=== PATIENT | female | born 1975 | race Caucasian/White ===

== ENCOUNTER → 2019-02-03 08:00 | Outpatient (POV) | payer SELFPAY | PROVIDERS: Visit Provider Dermatology | DX: Z00.00 Encounter for general adult medical examination without abnormal findings (principal) ==

== ENCOUNTER → 2019-06-12 15:00 | Outpatient (CLI) | payer BC, SELFPAY ==
--- NOTE | 2019-06-12 15:08 | US_ITS ---
PROCEDURE: US THYROID CLINICAL INDICATION: THYROID NODULES COMPARISON: No exams were available for comparison FINDINGS: Right lobe: 4.3 x 1.2 x 1.2 cm. There are 2 hypoechoic nodules in the mid polar region at 3 mm each. A 4 mm cyst is present in the lower pole on the right. Left lobe: 4.1 x 1.1 x 1.5 cm. There is a 3 mm hypoechoic nodule in the upper pole. A 5 mm hypoechoic nodules present in the lower pole. This is well-circumscribed without internal calcifications and appears somewhat spongiform Isthmus: Unremarkable Additional findings: IMPRESSION: Bilateral hypoechoic nodules which are of a low level of suspicion. Please correlate with old studies performed at an outside institution not available for comparison. Dictated by: Daniel Veronica MD 06/13/2019 10:49 Electronically signed by Daniel Veronica MD in [place] 06/13/2019 10:49
== END ==
PROVIDERS: PCP Nurse Practitioner Adult Health; Visit Provider Nurse Practitioner Adult Health
DX: E04.1 Nontoxic single thyroid nodule (principal)
CPT/HCPCS: 76536

== ENCOUNTER → 2020-11-24 15:57 | Outpatient (CLI) | payer BC, SELFPAY | PROVIDERS: PCP Nurse Practitioner Family; Visit Provider Nurse Practitioner Family | DX: Z20.822 Contact with and (suspected) exposure to COVID-19 (principal) | CPT/HCPCS: U0003 ==

== ENCOUNTER → 2021-03-14 12:28 | Outpatient (CLI) | payer BC, SELFPAY ==
--- NOTE | 2021-03-14 12:34 | XR_ITS ---
PROCEDURE: XR KUB CLINICAL INDICATION: LT SIDED ABD PAIN COMPARISON: No exams were available for comparison FINDINGS: Surgical clips are present in the right upper quadrant. No evidence of intestinal obstruction. There is an IUD in place slightly tilted toward the left at its upper aspect. Phleboliths is present in the mid pelvic region slightly toward the left. No acute bony anomalies IMPRESSION: No acute findings. Dictated by: Daniel Veronica MD 03/14/2021 14:19 Daniel Veronica MD in [facility] 03/14/2021 14:19
== END ==
PROVIDERS: PCP Family Medicine; Visit Provider Nurse Practitioner Family
DX: R10.9 Unspecified abdominal pain (principal)
CPT/HCPCS: 74018

== ENCOUNTER → 2021-04-04 10:13 | Outpatient (POV) | payer BC, SELFPAY | PROVIDERS: Visit Provider Dermatology | DX: Z00.00 Encounter for general adult medical examination without abnormal findings (principal) ==

== ENCOUNTER → 2021-06-08 09:42 | Outpatient (CLI) | payer BC, SELFPAY ==
[2021-06-08 10:23] LABS: Basophils % 0.7 % (0.1-2.0); Eosinophils # 0.1 K/mm3 (0.0-0.4); Eosinophils % 2.7 % (0.1-12.0); Hematocrit 46.1 % (37.0-47.0); Hemoglobin 15.4 g/dL (12.2-16.2); Lymphocytes # 1.6 K/mm3 (0.7-4.5); Lymphocytes % 30.6 % (10-50); Mean Corpuscular HGB Conc 33.4 g/dL (31.8-35.4); Mean Corpuscular Hemoglobin 28.7 pg (27.0-31.2); Mean Platelet Volume 8.4 fl (7.4-10.4); Monocytes # 0.3 K/mm3 (0.1-1.0); Neutrophils # 3.1 K/mm3 (1.8-7.8); Neutrophils % 60.2 % (37.0-80.0); Platelet Count 259 K/mm3 (142-424); Red Blood Count 5.36 M/mm3 (4.20-5.40); Red Cell Distribution Width 12.9 % (11.5-17.5); White Blood Count 5.2 K/mm3 (4.8-10.8)
[2021-06-08 11:12] LABS: Alanine Aminotransferase 38 U/L (12-78); Albumin Level 4.1 g/dl (3.5-5.0); Albumin/Globulin Ratio 1.5 (1.1-1.8); Alkaline Phosphatase 65 U/L (38-126); Anion Gap 10.4 mEq/L (5-15); Aspartate Amino Transferase 36 U/L (14-36); Bilirubin,Total 0.4 mg/dl (0.2-1.3); Blood Urea Nitrogen 8 mg/dl (7-17); Calcium 9.5 mg/dl (8.4-10.2); Carbon Dioxide 30 mmol/L (22.0-30.0); Chloride 102 mmol/L (98-107); Chol/HDL Ratio 4.6 (1-3.5); Cholesterol 188 mg/dl (140-200); Estimated Glomerular Filt Rate 91 ml/min (>60); GFR (African American) 111 ML/MIN (>60); Globulin 2.7 g/dL (1.3-3.2); Glucose 92 mg/dl (74-100); HDL Cholesterol 41 mg/dl (40-60); Potassium 4.4 mmoL/L (3.5-5.1); Sodium 138 mmol/L (136-145); Total Protein,Serum 6.8 g/dl (6.3-8.2); Triglycerides 123 mg/dl (30-150); VLDL Cholesterol 25 mg/dL (0-40)
[2021-06-08 11:23] LABS: C-Reactive Protein 1.5 mg/L (0-4); Direct LDL Cholesterol 138.16 mg/dL (100-129)
[2021-06-08 11:41] LABS: Thyroid Stimulating Hormone 1.13 uIU/mL (0.465-4.68)
[2021-06-08 11:52] LABS: Troponin I < 0.01 ng/ml (0.00-0.034)
== END ==
PROVIDERS: Visit Provider Nurse Practitioner Family
DX: R07.89 Other chest pain (principal)
CPT/HCPCS: 36415; 80053; 80061; 83735; 84443; 84484; 85025; 86140

== ENCOUNTER → 2021-06-25 12:21 | Outpatient (CLI) | payer BC, SELFPAY | PROVIDERS: Visit Provider Nurse Practitioner Family | DX: Z20.822 Contact with and (suspected) exposure to COVID-19 (principal) | CPT/HCPCS: C9803; U0003; U0005 ==

== ENCOUNTER 2021-06-27 06:27 | Day surgery (SDC) | payer BC, SELFPAY ==
[2021-06-26 09:01] VITALS: BMI 36.9
[2021-06-27 06:47] VITALS: BP 112/70; PULSE 76; RESP 18; TEMP 37.1; O2SAT 94
[2021-06-27 07:07] LABS: Urine Pregnancy, HCG Qual. Negative (Negative)
[2021-06-27 07:30] VITALS: O2SAT 97
--- NOTE | 2021-06-27 07:41 | HMH.SCOPE ---
- Procedure: Date: 06/27/21 Patient Date of :: 1975 Procedure Performed:: Esophagogastroduodenoscopy with biopsy Indications:: Reflux Dysphagia Performing Provider:: Van Whyte MD Referring Provider:: . Sedation:: Monitored anesthesia care Procedure:: After informed consent was obtained the patient was taken to the endoscopy suite. Sedation ensued after the patient was transferred to the left lateral decubitus position. Pulse, blood pressure, and oxygen saturation were monitored throughout the procedure. The endoscope was advanced beyond the duodenal bulb. Retroflexion within the gastric lumen was accomplished. The gastroscope was carefully removed and the patient was transferred to recovery in stable condition. Please see findings and specimens below for detail. Findings:: Gastroesophageal junction at 38 cm Small sliding hiatal hernia Mild to moderate patchy gastroduodenitis Specimens:: Antral biopsy Recommendations:: Follow-up pathology Continue H2 kayy Consider proton pump inhibition Likely barium swallow near future for improved evaluation of dysphagia Complications:: No immediate Estimated blood obtained (mL): 1
[2021-06-27 07:42] VITALS: BP 97/85; PULSE 83; RESP 18; TEMP 36.1; O2SAT 93
[2021-06-27 07:52] VITALS: BP 98/43; PULSE 72; RESP 18; TEMP 36.1; O2SAT 95
[2021-06-27 08:02] VITALS: BP 111/64; PULSE 63; RESP 18; TEMP 36.1; O2SAT 98
[2021-06-27 08:24] VITALS: BP 100/68; PULSE 57; RESP 18; TEMP 36.1; O2SAT 98
--- NOTE | 2021-06-27 11:13 | HMH.ANESCL ---
[facility] Anesthesia Checklist - Patient Identification Patient Identification: Arm Band, Verbal (Name & ) - Structural Data Admitted From: Home Planned Operative Procedure/s: EGD Consent for Planned Operative Procedure(s) Verified: Yes Verified Documents: Surgical Consent - NPO Status Verified Time NPO: 00:00 - Airway Assessment C-Spine Mobility Assessed: Yes TMJ Mobility Assessed: Yes Dentition: Good Dentition - Neurological Assessment Level of Consciousness: Awake, Alert, Appropriate - Anesthesia Plan Anesthesia Risk discussed: Yes ASA Class: II Anesthesia Type: General [facility] History Medical History: Reports:: Hyperlipidemia Denies:: Cancer, Diabetes Mellitus Type 1, Diabetes Mellitus Type 2, Internal Pacemaker, MRSA, Seizures *Have you ever received a pneumonia vaccine?: No *Have you received a flu vaccine this season?: Yes Anesthesia experience/problems:: none Other Surgeries: No: Pacemaker Amputation: No Fractures: No - *Social History Last grade of school completed: Some college Smoking Status: Current every day smoker Tobacco Type: cigarettes # Packs/Day (cigarettes): 1 Alcohol Intake: current Alcohol Intake Frequency:: holidays/special occasions only Substance Use Type: denies use *Occupational Status:: employed Housing: house Household Members: children *Travel in the last 8 weeks: None Family Hx:: Cancer
== END 2021-06-27 08:24 | disposition home or self-care (01) ==
LOC: OUTP 06:30
PROVIDERS: Visit Provider Surgery
PROC: 0DJ08ZZ Inspection of Upper Intestinal Tract, Via Natural or Artificial Opening Endoscopic (ICD-10-PCS; CPT 43235; principal; 2021-06-27 07:30)
DX: K44.9 Diaphragmatic hernia without obstruction or gangrene (principal); K21.9 Gastro-esophageal reflux disease without esophagitis; K29.90 Gastroduodenitis, unspecified, without bleeding; R13.10 Dysphagia, unspecified; E78.5 Hyperlipidemia, unspecified; Z72.0 Tobacco use; Z80.9 Family history of malignant neoplasm, unspecified; Z88.8 Allergy status to other drugs, medicaments and biological substances; Z79.899 Other long term (current) drug therapy
CPT/HCPCS: 43239; 81025

== ENCOUNTER → 2021-07-17 07:51 | Outpatient (CLI) | payer BC, SELFPAY ==
--- NOTE | 2021-07-17 07:52 | FL_ITS ---
FINAL REPORT CLINICAL HISTORY: . dysphagia time-0.45 FINDINGS: ESOPHAGRAM HISTORY: Dysphagia. TECHNIQUE: The patient ingested thick and thin barium contrast. Spot and overhead films were performed. A total of 19 images were saved. FINDINGS: The esophagus demonstrates no hiatal hernia. There is no gastroesophageal reflux demonstrated. No mucosal defects are seen. Motility appears normal. No changes of esophagitis are evident. 13 mm barium tablet passes easily through the esophagus and into the stomach. Fluoroscopy time: 0.45 minutes. IMPRESSION: Unremarkable esophagram. Reviewed, Interpreted and Dictated by Jefferson Liu MD Transcribed by Rufina Velasco PA-C Authenticated by Jefferson Liu MD on 07/17/2021 12:18:32 PM [facility]
== END ==
PROVIDERS: PCP Nurse Practitioner Family; Visit Provider Surgery
DX: R13.10 Dysphagia, unspecified (principal)
CPT/HCPCS: 74220

== ENCOUNTER → 2021-07-21 10:10 | Outpatient (CLI) | payer BC, SELFPAY ==
[2021-07-22 15:05] LABS: Covid-19 Nasal PCR Sendout Lex NOT DETECTED
== END ==
PROVIDERS: Visit Provider Nurse Practitioner
DX: Z20.822 Contact with and (suspected) exposure to COVID-19 (principal)
CPT/HCPCS: C9803; U0004; U0005

== ENCOUNTER → 2021-07-24 11:38 | Outpatient (CLI) | payer BC, SELFPAY ==
[2021-07-25 06:34] LABS: Covid-19 Nasal PCR Sendout Lex NOT DETECTED
== END ==
PROVIDERS: Visit Provider Nurse Practitioner
DX: Z20.822 Contact with and (suspected) exposure to COVID-19 (principal)
CPT/HCPCS: C9803; U0004; U0005

== ENCOUNTER 2021-08-06 10:21 | Emergency (ER) | payer BC, SELFPAY ==
--- NOTE | 2021-08-06 10:38 | HMH.EDUTC ---
[facility] [place] Disposition Clinical Impression: Exposure to COVID-19 virus Sinusitis Qualifiers: Sinusitis location: unspecified location Chronicity: acute Recurrence: non-recurrent Qualified Code(s): J01.90 - Acute sinusitis, unspecified Acute bronchitis Qualifiers: Bronchitis organism: unspecified organism Qualified Code(s): J20.9 - Acute bronchitis, unspecified Disposition: Home, Self-Care Condition on Discharge: Good Instructions: DI for Sinusitis Additional Instructions: Drink plenty of fluids. Take tylenol or ibuprofen for pain or fever. Take the medications as directed. Follow up with your regular doctor. GO TO THE ER FOR ANY WORSENING SYMPTOMS Quarantine until you know the results of your covid-19 test. Notify your school or workplace of your results and follow their instructions regarding return to work/school. The cough medication (promethazine dm) will make you drowsy, so don't drive or operate heavy machinery after taking it. Prescriptions: Promethazine/Dextromethorphan [Promethazine-Dm Syrup] 5 ml PO Q6HP PRN #240 ml PRN Reason: Cough Transmission Status: Pending to [facility] Amoxicillin/Potassium Clav [Augmentin 500mg tab] 500 mg PO TID #30 tab Transmission Status: Pending to [facility] methylPREDNISolone [Medrol] 4 mg PO DIRECTED 6 Days #21 packet Transmission Status: Pending to [facility] guaiFENesin [Mucinex 600mg tablet] 1 - 2 tab PO BIDP PRN #30 tab PRN Reason: Congestion Transmission Status: Pending to [facility] Referrals: Teena Briggs APRN [Primary Care Provider] - Time of Disposition: 12:02 Medical Decision Making - Medical Records Medical records reviewed: No: I reviewed the patient's medical records. - Chandu Inquiry Pt receiving controlled substance: No Vital Signs: 08/06/21 10:45 Temperature 98.2 F Temperature Source Oral Pulse Rate [Left] 75 Respiratory Rate 18 Blood Pressure [Right Arm] 123/79 Blood Pressure Mean [Right Arm] 93 02 Sat by Pulse Oximetry 97 - Lab Data Lab results reviewed: Yes: I reviewed the patient's lab results. Lab Results 08/06/21 09:31: Group A Strep Rapid Negative 08/06/21 10:37: Influenza Type A Ag Negative, Influenza Type B Ag Negative Orders (Tests/Meds): ORDERS Category Date Time Status Covid-19 Nasal PCR ([facility]) Routine Lab 08/06/21 11:42 Ordered Strep Screen Confirmation Stat Micro 08/06/21 09:31 Received [facility] [place] HPI - General Stated complaint: cough, congestion Time Seen by Provider: 08/06/21 10:38 - History of Present Illness Provider Complaint: She states that for the past 3 days she has been having progressively worsening chest congestion and a cough. She has ran a low grade fever up to 100.5 when her symptoms first started. She denies body aches and chills. She has been fully vaccinated against covid-19. She denies any known sick contacts. - Related Data Home Medications Medication Instructions Recorded Confirmed ALPRAZolam [Xanax Xr 0.5mg Tab] 0.5 mg PO NEEDED PRN 06/26/21 07/19/21 Famotidine 40 mg PO DAILY 06/26/21 07/19/21 Vortioxetine Hydrobromide 10 mg PO DAILY 06/26/21 07/19/21 [Trintellix] lamoTRIgine [Lamotrigine] 200 mg PO DAILY 06/26/21 07/19/21 levonorgestreL [Mirena] 1 each IY CONT 06/26/21 07/19/21 Previous Rx's Medication Instructions Recorded Amoxicillin/Potassium Clav 500 mg PO TID #30 tab 08/06/21 [Augmentin 500mg tab] Promethazine/Dextromethorphan 5 ml PO Q6HP PRN #240 ml 08/06/21 [Promethazine-Dm Syrup] guaiFENesin [Mucinex 600mg tablet] 1 - 2 tab PO BIDP PRN #30 tab 08/06/21 methylPREDNISolone [Medrol] 4 mg PO DIRECTED 6 Days #21 08/06/21 packet Allergies Allergy/AdvReac Type Severity Reaction Status Date / Time fluconazole [From Diflucan] Allergy Verified 07/19/21 09:19 [facility] History - Hepatitis A Screen Attestation statement:: This patient has been screened for Hepa
[2021-08-06 10:45] VITALS: BP 123/79; PULSE 75; RESP 18; TEMP 36.8; O2SAT 97; BMI 36.6
[2021-08-06 10:53] LABS: UTC Influenza A Antigen Negative (Negative); UTC Influenza B Antigen Negative (Negative)
[2021-08-06 11:05] LABS: Strep Scrn Group A (Rapid) Negative (Negative)
[2021-08-06 13:05] VITALS: BP 123/79; PULSE 75; RESP 18; TEMP 36.8
== END 2021-08-06 13:11 | disposition home or self-care (01) ==
PROVIDERS: Emergency Provider Nurse Practitioner Family; PCP Nurse Practitioner Family
DX: J20.9 Acute bronchitis, unspecified (principal); Z20.822 Contact with and (suspected) exposure to COVID-19
CPT/HCPCS: 87430; 87804; 96372; 99202; C9803; G0463; J0696; U0003; U0005

== ENCOUNTER → 2021-12-11 13:16 | Outpatient (CLI) | payer BC, SELFPAY ==
--- NOTE | 2021-12-11 13:19 | US_ITS ---
FINAL REPORT CLINICAL HISTORY: THYROID NODULE COMPARISON: June 12, 2019 FINDINGS: THYROID ULTRASOUND Sonographic images of the thyroid was obtained. The right lobe of the thyroid measures 3.7 x 1.6 x 1.2 cm. The left lobe of the thyroid measures 4.1 x 1.7 x 1.1 cm. The isthmus measures 3 mm. In the right lobe there is a 3 x 2 x 2 mm cystic nodule, TI-RADS 1. In the mid right lobe there is a 3 x 3 x 2 mm cystic and solid nodule, TI-RADS 2. In the left lobe there is a 4 x 3 x 2 mm cystic nodule, TI-RADS 1. In the left lobe there is a 6 x 5 x 4 mm cystic and solid nodule, TI-RADS 2. IMPRESSION: Bilateral thyroid nodules, stable. Reviewed, Interpreted and Dictated by Shay Yeager III, MD Transcribed by Margie Winn Authenticated and [facility]
== END ==
PROVIDERS: PCP Nurse Practitioner Family; Visit Provider Nurse Practitioner Family
DX: E04.1 Nontoxic single thyroid nodule (principal)
CPT/HCPCS: 76536

== ENCOUNTER → 2021-12-27 14:23 | Outpatient (CLI) | payer BC, SELFPAY ==
[2021-12-27 14:30] LABS: Adenovirus F 40/41, stool Not Detected (NotDetected); Astrovirus Not Detected (NotDetected); Campylobacter Not Detected (NotDetected); Clostridium Difficile A/B, PCR Not Detected (NotDetected); Cryptosporidium Not Detected (NotDetected); Cyclospora Cayetanesis Not Detected (NotDetected); Entamoeba histolytica Not Detected (NotDetected); Enteroaggregative E coli Not Detected (NotDetected); Enteropathogenic E coli Not Detected (NotDetected); Enterotoxigenic E coli Not Detected (NotDetected); Giardia lamblia Not Detected (NotDetected); Norovirus Not Detected (NotDetected); Plesimonas Shigalloides, PCR Not Detected (NotDetected); Rotavirus A Not Detected (NotDetected); Salmonella, PCR Not Detected (NotDetected); Sapovirus Not Detected (NotDetected); Shiga-like toxin E coli Not Detected (NotDetected); Shigella Enterovasive E coli Not Detected (NotDetected); Vibrio Cholerae Not Detected (NotDetected); Vibrio, PCR Not Detected (NotDetected); Yersinia Entercolitica, PCR Not Detected (NotDetected)
== END ==
PROVIDERS: PCP Internal Medicine Adolescent Medicine; Visit Provider Internal Medicine Adolescent Medicine
DX: K52.89 Other specified noninfective gastroenteritis and colitis (principal)
CPT/HCPCS: 87507

== ENCOUNTER → 2022-01-25 13:56 | Outpatient (CLI) | payer BC, SELFPAY | PROVIDERS: PCP Nurse Practitioner Family; Visit Provider Nurse Practitioner Family | DX: G47.30 Sleep apnea, unspecified (principal); R06.83 Snoring | CPT/HCPCS: G0399 ==

== ENCOUNTER → 2022-05-01 13:04 | Outpatient (CLI) | payer BC, SELFPAY ==
--- NOTE | 2022-05-01 13:08 | XR_ITS ---
FINAL REPORT TECHNIQUE: Chest PA & Lateral CLINICAL HISTORY: HX OF TOBACCO USE FINDINGS: 2 views of the chest were performed. The heart size is normal. The mediastinum is within normal limits. There is no acute cardiopulmonary process. There are no pleural effusions. There is no pneumothorax. The bony thorax appears intact. IMPRESSION: No acute cardiopulmonary process. Reviewed, Interpreted and Dictated by Jefferson Liu MD Transcribed by Yunior Mesa Authenticated and [facility]
== END ==
PROVIDERS: PCP Nurse Practitioner Family; Visit Provider Nurse Practitioner Family
DX: R05.2 Subacute cough (principal); Z87.891 Personal history of nicotine dependence
CPT/HCPCS: 71046

== ENCOUNTER → 2022-06-06 20:10 | Outpatient (CLI) | payer BC, SELFPAY | PROVIDERS: PCP Nurse Practitioner Family; Visit Provider Nurse Practitioner Family | DX: G47.30 Sleep apnea, unspecified (principal); R06.83 Snoring; E66.9 Obesity, unspecified; Z68.35 Body mass index [BMI] 35.0-35.9, adult | CPT/HCPCS: 95810 ==

== ENCOUNTER → 2022-06-20 09:50 | Outpatient (CLI) | payer BC, SELFPAY ==
[2022-06-20 10:40] VITALS: PULSE 83; PULSE 86
== END ==
PROVIDERS: PCP Nurse Practitioner Family; Visit Provider Nurse Practitioner Family
DX: R05.2 Subacute cough (principal)
CPT/HCPCS: 94060; 94640; 94726; 94729

== ENCOUNTER → 2022-07-13 09:35 | Outpatient (CLI) | payer BC, SELFPAY ==
--- NOTE | 2022-07-13 | CA_ITS ---
APPROVED REPORT Exam: Exercise Treadmill Technologist: Tiara Hunter, Ht: 5 ft 5 in Wt: 210 lbs BSA: 2.02 m2 HR: 74 bpm BP: 118/71 mmHg Medical History Medications: Abilify,,,,, LaMICTAL,,,,, TriNTELLIX,,,,, Stress Test Details Test: Desmond HR Resting HR: 88 bpm Max Heart Rate (APMHR): 176 bpm Max HR Achieved: 165 bpm Target HR (85% APMHR): 150 bpm % of APMHR: 94 Recovery HR: 95 bpm BP Resting BP: 115/79 mmHg Max BP: 143/77 mmHg Recovery BP: 137.0/75.0 mmHg ECG Resting ECG: SR Clinical Exercise duration: 06:01 min Highest Stage Achieved: II Exercise capacity: 7.0 METs Stress ECG Conclusion Max HR: 165 % of PM: 100% Test stopped due to: SOA & fatigue Symptoms: SOA w/ exertion. No chest pain Arrhythmias/Ectopy: none and no significant ST or T Wave changes... normal study Test Summary REST . . . . . . . Sitting REST . . . . . . . Standing REST 11:05 0.0 0.0 88 . 115/ 79 . . Stage 1 01:00 10.0 1.7 117 . . . . Stage 1 02:00 10.0 1.7 127 . . . . Stage 1 03:00 10.0 1.7 126 . 120/ 82 . . Stage 2 01:00 12.0 2.5 151 . . . . Stage 2 02:00 12.0 2.5 161 . . . . Stage 2 03:00 12.0 2.5 163 . 130/ 86 . . Stage 3 00:01 14.0 3.4 163 . . . Stop exercise at 06:01 RECOVERY 01:00 0.0 0.0 138 . . . . RECOVERY 02:00 0.0 0.0 127 . . . . RECOVERY 03:00 0.0 0.0 101 . 143/ 77 . . RECOVERY 04:00 0.0 0.0 99 . 143/ 77 . . RECOVERY 04:14 0.0 0.0 96 . 137/ 75 . . Electronically signed by : Joey Frost MD 07/13/2022 16:04:53
== END ==
PROVIDERS: PCP Nurse Practitioner Family; Visit Provider Internal Medicine Adolescent Medicine
DX: R07.9 Chest pain, unspecified (principal)
CPT/HCPCS: 93017